=== PATIENT | female | born 1995 | race American Indian/Alaskan Native ===

== ENCOUNTER 2017-05-30 19:52 | Emergency (ER) | payer SELFPAY ==
[2017-05-30] MEDS ORDERED: NACL 0.9% 1000 ML 1,000 ML IV ONE (21:30)
[2017-05-30 21:52] LABS: Basophils % (Auto) 0.8 % (0.0-1.8); Eosinophils # (Auto) 0.1 K/mm3 (0.0-0.4); Hematocrit 34.3 % (30.3-42.9); Hemoglobin 11.5 gm/dl (10.1-14.3); Lymphocytes # (Auto) 2.5 K/mm3 (1.2-5.4); Lymphocytes % (Auto) 47.3 % (13.4-35.0); Mean Corpuscular HGB Conc 34 % (30-34); Mean Corpuscular Hemoglobin 29 pg (28-32); Mean Corpuscular Volume 85 fl (79-97); Monocytes # (Auto) 0.5 K/mm3 (0.0-0.8); Monocytes % (Auto) 10.1 % (0.0-7.3); Platelet Count 225 K/mm3 (140-440); Red Blood Count 4.02 M/mm3 (3.65-5.03); Red Cell Distribution Width 13.5 % (13.2-15.2)
[2017-05-30 22:02] LABS: INR 0.97 (0.87-1.13)
[2017-05-30 22:03] LABS: Partial Thromboplastin Time 31.6 Sec. (24.2-36.6)
[2017-05-30 22:13] LABS: Alanine Aminotransferase 10 units/L (7-56); Albumin 4.3 g/dL (3.9-5); BUN/Creatinine Ratio 22; Blood Urea Nitrogen 11 mg/dL (7-17); Calcium 9.1 mg/dL (8.4-10.2); Hemolysis Index 33; Lipase 36 units/L (13-60)
--- NOTE | 2017-05-31 01:04 | Emergency Department Report ---
ED Female HPI - General Chief complaint: GI Bleed Stated complaint: DISCOMFORT VAG/HEMORRHOIDS Time Seen by Provider: 05/30/17 23:07 Source: patient Mode of arrival: Ambulatory Limitations: No Limitations - History of Present Illness Initial comments: Patient presents with sore on vagina and anal area for 5 days that are painful and gleason with urination. She had 2 bowel movements with blood form what she thinks is hemorrhoids. In the pass she had dealt with constipation and hemorrhoids and she believe it possible is bleeding today. She has not tried taking or using anything at this time. Admits to having unprotected intercourse and possible exposure to STD. States she is having some discharge but it doesn' t have an odor and appears to be the normal discharge she has each month. MD Complaint: possible STD -: days(s) (5) Location: labia, perineum Radiation: non-radiating Severity: moderate Severity scale (0 -10): 7 Quality: burning (with urination), aching Consistency: constant Improves with: none Worsens with: urination Are you Now?: No Last Menstrual Period: 05/27/17 EDC: 03/03/18 Associated Symptoms: rash (rash to labia and perineum). denies: vaginal discharge, vaginal bleeding, abdominal pain, nausea/vomiting, fever/chills, headaches, loss of appetite, dysuria, hematuria, seizure, shortness of breath, syncope, weakness - Related Data Sexually active: Yes : 0 Para: 0 A: 0 Previous Rx's Medication Instructions Recorded Last Taken Type Pseudoephed/Cod/Guaifen 5 ml PO Q6H #1 bottle 04/19/15 Unknown Rx [Robitussin DAC 10-100-30Mg/5Ml] Acyclovir [Zovirax] 400 mg PO 5XD 10 Days #60 tablet 05/31/17 Unknown Rx Hydrocortisone [Anucort-HC SUPPOS] 25 mg RC BID #10 supp.rect 05/31/17 Unknown Rx Allergies Allergy/AdvReac Type Severity Reaction Status Date / Time No Known Allergies Allergy Verified 04/19/15 04:48 ED Review of Systems ROS: Stated complaint: DISCOMFORT VAG/HEMORRHOIDS Other details as noted in HPI Constitutional: no symptoms reported, see HPI. denies: chills, diaphoresis, fever, malaise, weakness Respiratory: no symptoms reported, see HPI. denies: cough, orthopnea, shortness of breath, SOB with exertion, SOB at rest, stridor, wheezing Cardiovascular: as per HPI. denies: chest pain, palpitations, dyspnea on exertion, orthopnea, edema, syncope, paroxysmal nocturnal dyspnea Gastrointestinal: as per HPI. denies: abdominal pain, nausea, vomiting, diarrhea, constipation, hematemesis, melena, hematochezia Genitourinary: as per HPI, discharge (thin clear). denies: urgency, dysuria, frequency, hematuria, abnormal menses, dyspareunia Skin: as per HPI, rash (rash to labia and perineum). denies: lesions, change in color, change in hair/nails, pruritus Neurological: as per HPI. denies: headache, weakness, numbness, paresthesias, confusion, abnormal gait, vertigo ED Past Medical Hx - Past Medical History Previous Medical History?: No Additional medical history: heart palpatations - Surgical History Past Surgical History?: Yes Additional Surgical History: fibroids - Social History Smoking Status: Never Smoker Substance Use Type: None - Medications Home Medications: Home Medications Medication Instructions Recorded Confirmed Last Taken Type Pseudoephed/Cod/Guaifen 5 ml PO Q6H #1 bottle 04/19/15 Unknown Rx [Robitussin DAC 10-100-30Mg/5Ml] Acyclovir [Zovirax] 400 mg PO 5XD 10 Days #60 tablet 05/31/17 Unknown Rx Hydrocortisone [Anucort-HC SUPPOS] 25 mg RC BID #10 supp.rect 05/31/17 Unknown Rx ED Physical Exam - General Limitations: No Limitations General appearance: alert, in no apparent distress - Respiratory Respiratory exam: Present: normal lung sounds bilaterally. Absent: respiratory distress - Cardiovascular Cardiovascular Exam: Present: regular rate, normal rhythm. Absent: systolic murmur, diastolic murmur, rubs, gallop - GI/Abdominal GI/Abdominal exam: Present: soft, normal bowel sounds - Rectal Rectal exam: Present: hemorrhoids (external bleeding hemorrhoids) - External exam: Present: lesions (multiple 2 mm vesicules on labia majora and anus). Absent: erythema, swelling, lacerations, ecchymosis, bleeding Speculum exam: Present: erythema, vaginal discharge (thin white, no odor). Absent: cervical discharge, vaginal bleeding, foreign body, tissue, laceration Bi-manual exam: Present: normal bi-manual exam. Absent: cervical motion tendernes, adnexal tenderness, adnexal mass, uterine enlargement, uterine tenderness - Neurological Exam Neurological exam: Present: alert, oriented X3 ED Course Vital Signs 05/30/17 21:26 Temperature 98.6 F Pulse Rate 81 Respiratory 16 Rate Blood Pressure 109/65 O2 Sat by Pulse 100 Oximetry ED Medical Decision Making - Lab Data Result diagrams: 05/30/17 21:33 05/30/17 21:33 Critical care attestation.: If time is entered above; I have spent that time in minutes in the direct care of this critically ill patient, excluding procedure time. ED Disposition Clinical Impression: Bleeding external hemorrhoids Herpes genitalis Qualifiers: Herpes simplex infection site: vulvovaginitis Qualified Code(s): A60.04 - Herpesviral vulvovaginitis Disposition: - TO HOME OR SELFCARE Is pt being admited?: No Does the pt Need Aspirin: No Condition: Stable Instructions: Hemorrhoids (ED), Rectal Bleeding (ED), Genital Herpes Simplex ( ED) Additional Instructions: Take medication as prescribed. Return for lab results in 3-5 days. Increase fluid intake. Take stool softener to prevent constipation. Follow up with primary care provider. Prescriptions: Acyclovir [Zovirax] 400 mg PO 5XD 10 Days #60 tablet Hydrocortisone [Anucort-HC SUPPOS] 25 mg RC BID #10 supp.rect Referrals: RITESH WEEKS MD [Primary Care Provider] - 3-5 Days [facility] [Outside] - 3-5 Days [facility] [Outside] - 3-5 Days [facility] [Outside] - 3-5 Days Forms: Accompanied Note Time of Disposition: 01: Print Language: SPANISH
[2017-05-31] MEDS ORDERED: MOTRIN PO ONE (01:38)
[2017-05-31] MEDS ORDERED: VALTREX PO ONE (01:38)
[2017-05-31 01:56] VITALS: BP 113/67
== END 2017-05-31 01:56 | disposition home or self-care (01) ==
LOC: ED 19:52
DX: K64.4 Residual hemorrhoidal skin tags (principal); A60.04 Herpesviral vulvovaginitis
CPT/HCPCS: 36415; 80053; 83690; 85025; 85610; 85730; 86850; 86900; 86901; 87210; 87255; 87591; 99284